=== PATIENT | female | born 1975 | race Caucasian/White ===

== ENCOUNTER → 2017-04-22 | Outpatient (CLI) | payer OTHER ==
[~2017-04-22] MED LIST: COLACE1 SUP RC; COLACE100 MG PO; IRON325 M1 PO; METFORMIN500 MG; METFORMIN500 MG PO; MOTRIN800 MG PO; PERCOCET 325 MG1 TA2 PO; PNV-TOTAL1 SGL PO; PRENATAL1 TA1; ZOFRAN ODT4 MG SL
== END | disposition home or self-care (01) ==
LOC: RESCLI 03:53
DX: Z00.01 Encounter for general adult medical examination with abnormal findings (principal); R68.89 Other general symptoms and signs

== ENCOUNTER → 2017-06-03 | Outpatient (CLI) | payer OTHER | END | disposition home or self-care (01) | LOC: MAMMO 00:12 | DX: Z12.31 Encounter for screening mammogram for malignant neoplasm of breast (principal); Z01.419 Encounter for gynecological examination (general) (routine) without abnormal findings ==

== ENCOUNTER → 2017-08-12 | Outpatient (CLI) | payer OTHER ==
[~2017-08-12] MED LIST changes: +MULTIVITAMINS1 EAC5 PO; +NAPROXEN500 M1 PO
== END | disposition home or self-care (01) ==
LOC: RESCLI 01:22
DX: L74.0 Miliaria rubra (principal); D22.9 Melanocytic nevi, unspecified; E66.3 Overweight; W57.XXXA Bitten or stung by nonvenomous insect and other nonvenomous arthropods, initial encounter; Z88.1 Allergy status to other antibiotic agents

== ENCOUNTER 2017-09-01 09:09 | Emergency (ER) | payer OTHER ==
[~2017-09-01] VITALS: Wt 72.1 kg
[~2017-09-01 09:09] MED LIST changes: -MULTIVITAMINS1 EAC5 PO; -NAPROXEN500 M1 PO
[2017-09-01 09:45] LABS: BASO % 0.5 % (0.0-1.0); HEMATOCRIT 42.8 % (37.0-47.0); HEMOGLOBIN 14.3 g/dl (12.0-16.0); LYMPH # 0.6 10*3/uL (1.3-4.4); LYMPH % 12.9 % (27.0-41.0); MEAN CELL VOLUME 88.8 fl (81.0-99.0); MEAN CORPUSCULAR HGB 29.7 pg (27.0-31.0); MEAN CORPUSCULAR HGB CONC 33.4 g/dl (33.0-37.0); MEAN PLATELET VOLUME 9.4 fl (9.6-12.3); MONO # 0.2 10*3/uL (0.1-1.0); MONO % 5.6 % (3.0-9.0); NEUT # 3.4 10*3/uL (2.3-7.9); NEUT % 80.8 % (47.0-73.0); PLATELET COUNT AUTOMATED 209 10*3/uL (130-400); RED BLOOD COUNT 4.82 10*6/uL (4.10-5.10); RED CELL DISTRI WIDTH 12.2 % (0-14.5); WHITE BLOOD COUNT 4.3 10*3/uL (4.8-10.8)
[2017-09-01 09:47] LABS: BILIRUBIN NEGATIVE (NEGATIVE); BLOOD NEGATIVE (NEGATIVE); CLARITY CLOUDY (CLEAR); COLOR YELLOW (YELLOW); GLUCOSE TRACE (NEGATIVE); KETONE NEGATIVE (NEGATIVE); LEUKO ESTERASE NEGATIVE (NEGATIVE); NITRITE NEGATIVE (NEGATIVE)
[2017-09-01 09:59] LABS: ALBUMIN 3.6 gm/dl (3.1-4.5); ALKALINE PHOSPHATASE 215 U/L (45-117); BUN 9 mg/dl (7-24); CHLORIDE 102 mmol/L (98-107); LIPASE 144 U/L (73-393); POTASSIUM 4.1 mmol/L (3.5-5.1); SGOT/AST 90 IU/L (3-35); SGPT/ALT 104 U/L (12-78); SODIUM 138 mmol/L (136-145); TOTAL PROTEIN 8.2 gm/dL (6.4-8.2)
[2017-09-01 12:40] LABS: CLARITY CLEAR; COLOR COLORLESS
[2017-09-01 13:06] LABS: CSF TOTAL PROTEIN 38.1 mg/dL (15-45)
[2017-09-01 13:10] LABS: CSF RBC < 1000 /uL; CSF WBC 3 /uL
[2017-09-01 13:43] LABS: CSF LYMPHOCYTES 96 % (40-80); CSF MONOCYTES 2 % (15-45)
[2017-09-03 19:03] LABS: HSV-2 DNA Negative (Negative)
== END 2017-09-01 14:50 | disposition home or self-care (01) ==
LOC: ED 09:09
PROVIDERS: Emergency Medicine; Nurse Practitioner Family
DX: R51 Headache (principal); B34.9 Viral infection, unspecified; R94.5 Abnormal results of liver function studies; Z98.890 Other specified postprocedural states; Z88.1 Allergy status to other antibiotic agents; Z79.899 Other long term (current) drug therapy

== ENCOUNTER → 2017-09-10 | Outpatient (CLI) | payer OTHER ==
[~2017-09-10] MED LIST changes: +MULTIVITAMINS1 EAC5 PO; +NAPROXEN500 M1 PO
== END | disposition home or self-care (01) ==
LOC: ORTHO 02:58
DX: M25.562 Pain in left knee (principal)

== ENCOUNTER → 2017-09-19 | Outpatient (CLI) | payer OTHER | END | disposition home or self-care (01) | LOC: MRI 08:31 | DX: M25.462 Effusion, left knee (principal); M17.12 Unilateral primary osteoarthritis, left knee ==

== ENCOUNTER 2017-09-21 13:25 | Emergency (ER) | payer OTHER ==
[~2017-09-21] VITALS: Wt 68.0 kg
[~2017-09-21 13:25] MED LIST changes: -MULTIVITAMINS1 EAC5 PO; -NAPROXEN500 M1 PO
[2017-09-21] MEDS ORDERED: NAPROXEN500 M1 PO (13:36)
[2017-09-21] MEDS ORDERED: MULTIVITAMINS1 EAC5 PO (13:37)
== END 2017-09-21 14:05 | disposition home or self-care (01) ==
LOC: ED 13:25
DX: R21 Rash and other nonspecific skin eruption (principal); R68.84 Jaw pain; Z98.890 Other specified postprocedural states; Z79.899 Other long term (current) drug therapy; Z88.1 Allergy status to other antibiotic agents

== ENCOUNTER → 2017-09-22 | Outpatient (CLI) | payer OTHER ==
[~2017-09-22] MED LIST changes: +MULTIVITAMINS1 EAC5 PO; +NAPROXEN500 M1 PO
[2017-09-23 08:11] LABS: RHEUMATOID ARTHRITIS FACTOR <10.0 IU/mL (0.0-13.9)
[2017-09-24 00:07] LABS: PTT-LA 42.6 sec (0.0-51.9)
[2017-09-24 07:05] LABS: LUPUS DRVVT 54.4 sec (0.0-47.0)
[2017-09-24 08:11] LABS: LUPUS REFLEX INTERPRETATION Comment: (.)
== END | disposition home or self-care (01) ==
LOC: LAB 10:57
PROVIDERS: Nurse Practitioner Family
DX: B27.90 Infectious mononucleosis, unspecified without complication (principal); R68.84 Jaw pain; R53.83 Other fatigue

== ENCOUNTER → 2017-12-22 | Outpatient (CLI) | payer OTHER | END | disposition home or self-care (01) | LOC: RAD 16:34 | DX: J18.0 Bronchopneumonia, unspecified organism (principal) ==

== ENCOUNTER → 2018-01-29 | Outpatient (CLI) | payer OTHER | END | disposition home or self-care (01) | LOC: RAD 16:04 | DX: J15.9 Unspecified bacterial pneumonia (principal) ==

== ENCOUNTER 2019-02-20 07:24 | Emergency (ER) | payer OTHER ==
[~2019-02-20] VITALS: Ht 157.4 cm; Wt 68.9 kg
[2019-02-20 07:56] LABS: BILIRUBIN 1+ (NEGATIVE); BLOOD NEGATIVE (NEGATIVE); CLARITY SL CLOUDY (CLEAR); COLOR YELLOW (YELLOW); GLUCOSE NEGATIVE (NEGATIVE); KETONE NEGATIVE (NEGATIVE); LEUKO ESTERASE NEGATIVE (NEGATIVE); NITRITE NEGATIVE (NEGATIVE); PH 5.5 (5.0-9.0); SPECIFIC GRAVITY >= 1.030 (1.005-1.030); UROBILINOGEN 0.2 E.U./dl (0.2-1.0)
[2019-02-20 08:08] LABS: BACTERIA 2+; CALCIUM OXALATE CRYSTALS 1+; MUCOUS 3+
[2019-02-20] MEDS ORDERED: CYCLOBENZAPRINE10 MG PO (12:14)
[2019-02-20] MEDS ORDERED: NORCO 10-325 T1 EACH PO (12:19)
== END 2019-02-20 12:45 | disposition home or self-care (01) ==
LOC: ED 07:24
PROVIDERS: Emergency Medicine
DX: S39.012A Strain of muscle, fascia and tendon of lower back, initial encounter (principal); Z88.1 Allergy status to other antibiotic agents; Z79.899 Other long term (current) drug therapy; Z87.442 Personal history of urinary calculi; X58.XXXA Exposure to other specified factors, initial encounter; Y93.89 Activity, other specified; Y92.89 Other specified places as the place of occurrence of the external cause; Y99.8 Other external cause status

== ENCOUNTER → 2019-03-04 | Outpatient (CLI) | payer OTHER ==
[~2019-03-04] MED LIST changes: +CYCLOBENZAPRINE10 MG PO; +NORCO 10-325 T1 EACH PO
== END | disposition home or self-care (01) ==
LOC: MRI 12:53
DX: M47.816 Spondylosis without myelopathy or radiculopathy, lumbar region (principal); M51.26 Other intervertebral disc displacement, lumbar region

== ENCOUNTER → 2020-01-03 | Outpatient (CLI) | payer OTHER | END | disposition home or self-care (01) | LOC: MAMMO 01:06 | PROVIDERS: ATTEND Nurse Practitioner Women's Health | DX: Z12.31 Encounter for screening mammogram for malignant neoplasm of breast (principal) ==

== ENCOUNTER → 2020-01-17 | Outpatient (CLI) | payer OTHER | END | disposition home or self-care (01) | LOC: COVID19 16:17 | PROVIDERS: ATTEND Nurse Practitioner Family | DX: Z20.828 Contact with and (suspected) exposure to other viral communicable diseases (principal) ==

== ENCOUNTER → 2020-06-05 | Outpatient (CLI) | payer OTHER | END | disposition home or self-care (01) | LOC: RAD 14:54 | PROVIDERS: ATTEND Nurse Practitioner Family | DX: M79.671 Pain in right foot (principal); G89.29 Other chronic pain ==

== ENCOUNTER → 2020-11-08 | Outpatient (CLI) | payer OTHER | END | disposition home or self-care (01) | LOC: NM 00:52 | PROVIDERS: ATTEND Orthopaedic Surgery | DX: M79.671 Pain in right foot (principal) ==

== ENCOUNTER → 2021-01-03 | Outpatient (CLI) | payer OTHER | END | disposition home or self-care (01) | LOC: MAMMO 00:29 | PROVIDERS: ATTEND Nurse Practitioner Women's Health | DX: Z12.31 Encounter for screening mammogram for malignant neoplasm of breast (principal) ==

== ENCOUNTER → 2021-02-05 | Day surgery (SDC) | payer OTHER ==
[~2021-02-05] VITALS: Ht 160 cm; Wt 72.6 kg
[2021-02-05 07:02] VITALS: BP 125/77
[2021-02-05 08:25] VITALS: BP 102/70
[2021-02-05 08:37] VITALS: BP 107/69
[2021-02-05 08:55] VITALS: BP 109/70
== END | disposition home or self-care (01) ==
LOC: SDC 02-01 08:45
PROVIDERS: ATTEND Surgery
DX: D64.9 Anemia, unspecified (principal); K29.50 Unspecified chronic gastritis without bleeding; Z20.822 Contact with and (suspected) exposure to COVID-19; Z79.899 Other long term (current) drug therapy

== ENCOUNTER → 2022-01-22 | Outpatient (CLI) | payer OTHER | END | disposition home or self-care (01) | LOC: MAMMO 16:59 | PROVIDERS: ATTEND Nurse Practitioner Women's Health | DX: Z12.31 Encounter for screening mammogram for malignant neoplasm of breast (principal); N64.89 Other specified disorders of breast ==

== ENCOUNTER → 2023-01-21 | Outpatient (CLI) | payer OTHER, BC | END | disposition home or self-care (01) | LOC: LAB 07:07 | PROVIDERS: ATTEND Nurse Practitioner Women's Health | DX: R53.83 Other fatigue (principal) ==

== ENCOUNTER → 2023-01-28 | Outpatient (CLI) | payer OTHER | END | disposition home or self-care (01) | LOC: MAMMO 17:00 | PROVIDERS: ATTEND Nurse Practitioner Women's Health | DX: Z12.31 Encounter for screening mammogram for malignant neoplasm of breast (principal) ==

== ENCOUNTER → 2023-06-18 | Outpatient (CLI) | payer OTHER ==
[2023-06-18 07:42] LABS: BASO % 0.7 % (0.0-1.0); EOS # 0.2 10*3/uL (0.0-0.4); EOS % 4.3 % (1.0-4.0); HEMATOCRIT 39.7 % (37.0-47.0); LYMPH # 1.9 10*3/uL (1.3-4.4); LYMPH % 34.3 % (27.0-41.0); MEAN CELL VOLUME 79.4 fl (81.0-99.0); MEAN CORPUSCULAR HGB 24.4 pg (27.0-31.0); MEAN CORPUSCULAR HGB CONC 30.7 g/dl (33.0-37.0); MEAN PLATELET VOLUME 9.5 fl (9.6-12.3); MONO # 0.4 10*3/uL (0.1-1.0); MONO % 7.4 % (3.0-9.0); NEUT # 2.9 10*3/uL (2.3-7.9); NEUT % 53.1 % (47.0-73.0); PLATELET COUNT AUTOMATED 400 10*3/uL (130-400); RED CELL DISTRI WIDTH 15.9 % (0-14.5); WHITE BLOOD COUNT 5.4 10*3/uL (4.8-10.8)
[2023-06-18 08:21] LABS: ALKALINE PHOSPHATASE 74 U/L (46-116); BUN 10 mg/dl (9-23); CHLORIDE 105 mmol/L (98-107); CHOLESTEROL 164 mg/dL (<200); FREE T4 0.91 ng/dl (0.89-1.76); LDL CHOLESTEROL 97 mg/dL (9-159); POTASSIUM 4.6 mmol/L (3.4-5.1); SGPT/ALT 14 U/L (5-49); TOTAL PROTEIN 7.6 gm/dL (6.0-8.0); TRIGLYCERIDES 64 mg/dl (<150)
== END | disposition home or self-care (01) ==
LOC: LAB 00:52
PROVIDERS: ATTEND Nurse Practitioner Family
DX: H61.23 Impacted cerumen, bilateral (principal); R63.5 Abnormal weight gain; D22.9 Melanocytic nevi, unspecified

== ENCOUNTER → 2023-10-31 | Outpatient (CLI) | payer OTHER ==
[~2023-10-31] MED LIST changes: +GADOTERATE MEGLUMINE 7.5 MMOL/15 ML VIAL IV ONE
== END | disposition home or self-care (01) ==
LOC: MRI 00:34
PROVIDERS: ATTEND Nurse Practitioner Family
DX: G44.52 New daily persistent headache (NDPH) (principal)

== ENCOUNTER → 2023-11-10 | Outpatient (CLI) | payer OTHER ==
[~2023-11-10] MED LIST changes: -GADOTERATE MEGLUMINE 7.5 MMOL/15 ML VIAL IV ONE
[2023-11-10 17:06] LABS: BASO % 0.3 % (0.0-1.0); HEMATOCRIT 38.1 % (37.0-47.0); LYMPH % 22.5 % (27.0-41.0); MEAN CELL VOLUME 80.9 fl (81.0-99.0); MEAN CORPUSCULAR HGB 25.5 pg (27.0-31.0); MEAN CORPUSCULAR HGB CONC 31.5 g/dl (33.0-37.0); MEAN PLATELET VOLUME 10.2 fl (9.6-12.3); MONO # 0.4 10*3/uL (0.1-1.0); MONO % 4.7 % (3.0-9.0); NEUT # 6.5 10*3/uL (2.3-7.9); NEUT % 72.3 % (47.0-73.0); PLATELET COUNT AUTOMATED 425 10*3/uL (130-400); RED BLOOD COUNT 4.71 10*6/uL (4.10-5.10); RED CELL DISTRI WIDTH 15.9 % (0-14.5)
[2023-11-10 17:40] LABS: ALKALINE PHOSPHATASE 63 U/L (46-116); BUN 9 mg/dl (9-23); CHLORIDE 102 mmol/L (98-107); POTASSIUM 4.5 mmol/L (3.4-5.1); SGPT/ALT 16 U/L (5-49); TOTAL PROTEIN 7.5 gm/dL (6.0-8.0)
== END | disposition home or self-care (01) ==
LOC: LAB 16:43
PROVIDERS: ATTEND Nurse Practitioner Family
DX: R51.9 Headache, unspecified (principal)

== ENCOUNTER → 2024-02-19 | Outpatient (CLI) | payer OTHER | END | disposition home or self-care (01) | LOC: MAMMO 02:44 | PROVIDERS: ATTEND Nurse Practitioner Women's Health | DX: Z12.31 Encounter for screening mammogram for malignant neoplasm of breast (principal) ==

== ENCOUNTER → 2024-08-16 | Outpatient (CLI) | payer OTHER ==
[2024-08-16 15:06] LABS: BASO % 0.4 % (0.0-1.0); EOS # 0.4 10*3/uL (0.0-0.4); EOS % 13.6 % (1.0-4.0); HEMATOCRIT 40.3 % (37.0-47.0); MEAN CORPUSCULAR HGB 26.5 pg (27.0-31.0); MEAN CORPUSCULAR HGB CONC 31.5 g/dl (33.0-37.0); MEAN PLATELET VOLUME 9.9 fl (9.6-12.3); MONO # 0.1 10*3/uL (0.1-1.0); MONO % 4.3 % (3.0-9.0); NEUT # 1.8 10*3/uL (2.3-7.9); NEUT % 65.5 % (47.0-73.0); PLATELET COUNT AUTOMATED 254 10*3/uL (130-400); WHITE BLOOD COUNT 2.8 10*3/uL (4.8-10.8)
[2024-08-16 15:09] LABS: BILIRUBIN Negative (Negative); BLOOD Negative (Negative); CLARITY Clear (Clear); COLOR Yellow (Yellow); GLUCOSE Negative (Negative); KETONE Trace (Negative); LEUKO ESTERASE Negative (Negative); NITRITE Negative (Negative); PH 6.5 (4.5-8.0); SPECIFIC GRAVITY 1.015 (1.001-1.030)
[2024-08-16 15:28] LABS: ALKALINE PHOSPHATASE 62 U/L (46-116); BUN 11 mg/dl (9-23); CHLORIDE 100 mmol/L (98-107); LIPASE 31 U/L (12-53); SGPT/ALT 21 U/L (5-49); TOTAL PROTEIN 7.2 gm/dL (6.0-8.0)
[2024-08-16 16:04] LABS: BACTERIA 1+
== END | disposition home or self-care (01) ==
LOC: LAB 14:40
PROVIDERS: ATTEND Nurse Practitioner Family
DX: R11.2 Nausea with vomiting, unspecified (principal); R59.0 Localized enlarged lymph nodes; R50.9 Fever, unspecified; R65.10 Systemic inflammatory response syndrome (SIRS) of non-infectious origin without acute organ dysfunction

== ENCOUNTER → 2024-08-26 | Outpatient (CLI) | payer OTHER | END | disposition home or self-care (01) | LOC: MAMMO 12:49 | PROVIDERS: ATTEND Nurse Practitioner Family | DX: R59.0 Localized enlarged lymph nodes (principal); R92.323 Mammographic fibroglandular density, bilateral breasts; M79.89 Other specified soft tissue disorders; N64.4 Mastodynia ==